=== PATIENT | male | born 1985 | race Caucasian/White ===

== ENCOUNTER 2021-11-24 06:13 | Emergency (ER) | payer SELFPAY ==
[~2021-11-24] VITALS: Ht 172.7 cm; Wt 88.5 kg
[2021-11-24] MEDS ORDERED: ACETAMINOPHEN 325MG TABLET PO ONE (07:15)
[2021-11-24] MEDS ORDERED: SODIUM CHLORIDE 0.9% 1,000 ML IV ONE ×2 (07:15→11:15)
[2021-11-24 08:15] LABS: CLARITY URINE CLEAR (CLEAR); COLOR URINE DARK YELLOW (YELLOW); KETONES URINE 1+ (NEGATIVE); LEUKOCYTE ESTERASE URINE NEGATIVE (NEGATIVE); NITRITE URINE NEGATIVE (NEGATIVE); OCCULT BLOOD URINE NEGATIVE (NEGATIVE); PROTEIN URINE TRACE (NEGATIVE); SPECIFIC GRAVITY URINE 1.031 (1.005-1.030)
[2021-11-24 08:21] LABS: HEMATOCRIT. 36.7 % (42.0-52.0); HEMOGLOBIN. 12.9 g/dL (14.0-18.0); MEAN CORPUSCULAR HEMOGLOBIN 29.9 pg (28.0-32.0); MEAN CORPUSCULAR VOLUME 85.1 fL (80.0-94.0); MEAN PLATELET VOLUME 7.7 fl (7.4-10.4); PLATELET 197 x1000/uL (130-400); RED BLOOD CELL COUNT 4.31 mill/uL (4.7-6.1); RED CELL DISTRIBUTION WIDTH 13.2 % (11.6-14.6)
[2021-11-24 08:29] LABS: CHLORIDE 105 mEq/L (98-107)
[2021-11-24 08:41] LABS: ETHANOL BLOOD < 10 mg/dL
[2021-11-24 09:01] LABS: *AMPHETAMINES SCREEN URINE PRESUMTIVE POSITIVE (NEGATIVE); *BARBITURATES SCREEN URINE NEGATIVE (NEGATIVE); *BENZODIAZEPINES SCREEN URINE PRESUMTIVE POSITIVE (NEGATIVE); *COCAINE SCREEN URINE NEGATIVE (NEGATIVE); CANNABINOID URINE SCREEN PRESUMTIVE POSITIVE (NEGATIVE); METHADONE URINE SCREEN NEGATIVE (NEGATIVE); OPIATES URINE SCREEN NEGATIVE (NEGATIVE); PHENCYCLIDINE URINE SCREEN NEGATIVE (NEGATIVE)
[2021-11-24 09:03] LABS: PLATELET ESTIMATE NORMAL
[2021-11-24] MEDS ORDERED: ACETAMINOPHEN 325MG TABLET PO NR (09:15)
[2021-11-24] MEDS ORDERED: CEFTRIAXONE 1 G PREMIX 50 ML IV ONE (09:30)
[2021-11-24] MEDS ORDERED: KETOROLAC 15MG/ML VIAL IV ONE (11:15)
[2021-11-24] MEDS ORDERED: CEFTRIAXONE 1 G PREMIX 50 ML IV NR (12:00)
[2021-11-24] MEDS ORDERED: CEFP200T13 MT (12:41)
[2021-11-24 13:00] VITALS: BP 110/58
== END 2021-11-24 13:00 | disposition home or self-care (01) ==
LOC: ER 06:13
DX: N39.0 Urinary tract infection, site not specified (principal); S00.212A Abrasion of left eyelid and periocular area, initial encounter; E87.6 Hypokalemia; M47.812 Spondylosis without myelopathy or radiculopathy, cervical region; V28.0XXA Motorcycle driver injured in noncollision transport accident in nontraffic accident, initial encounter; F15.10 Other stimulant abuse, uncomplicated; F13.10 Sedative, hypnotic or anxiolytic abuse, uncomplicated; F16.10 Hallucinogen abuse, uncomplicated; F12.90 Cannabis use, unspecified, uncomplicated; Y93.89 Activity, other specified; Y92.488 Other paved roadways as the place of occurrence of the external cause
CPT/HCPCS: 36415; 70450; 71045; 72125; 80053; 80305; 80320; 81003; 83690; 84484; 85025; 96361; 96365; 96375; 99285; J0696; J1885; J7030; G0480